=== PATIENT | female | born 1970 ===

== ENCOUNTER 2018-11-04 07:46 | Day surgery (SDC) | payer MEDICARE ==
[2018-10-26 13:34] VITALS: BMI 31.1
[2018-11-04 08:12] VITALS: RESP 18
[2018-11-04] MEDS ORDERED: Lactated Ringer's 1,000 ML IV ONE (08:30)
--- NOTE | 2018-11-04 10:55 | CP.SDSHP ---
Same Day Surgery H & P - History Proposed Procedure: Excision of soft tissue mass Pre-Op Diagnosis: soft tissue mass - Previous Medical/Surgical History Pain: 4.Moderate Pain Previous Surgical History: Darian-en-y gastric bypass, x 3 - Allergies Allergies: Allergies Penicillins Allergy (Verified 11/04/18 07:58) RASH RASH - Current Medications Current Medications: Denies - Physical Exam General Appearance: well nourished, NAD Vital Signs: Vital Signs 11/04/18 11/04/18 08:11 08:16 Temperature 97.9 F Pulse Rate 69 69 Respiratory 18 Rate Blood Pressure 121/78 O2 Sat by Pulse 98 Oximetry Mental Status: Alert & Oriented x3 Neuro: WNL Heart: WNL Lungs: WNL GI: WNL - {Optional Preform as Required} Integument: Other (sift tissue mass on mid thoracic region) - Impression Impression: 48 F who presents for Excision of soft tissue mass Pt. Evaluated Today:Candidate for Anesthesia & Procedure: Yes - Date & Time Date: 11/04/18 Time: 11:00 Short Stay Discharge - Short Stay Discharge Admitting Diagnosis/Reason for Visit: D17.1 Disposition: HOME/ ROUTINE Medications: traMADol [Ultram] 50 mg PO Q6 PRN #20 tab PRN Reason: Pain, Moderate (4-7) Referrals: Luis Osei MD [Staff Provider] - Additional Instructions (Diet, Activity): follow up with Dr. Osei within 1-2 weeks may shower keep area clean and dry Call Dr. Osei's office for any issues Progress Note/Discharge Note with Instructions: 48 F who presented for excision of soft tissue mass Patient stable for discharge home when SDS criteria met
[2018-11-04] MEDS ORDERED: Propofol 10 mg/ml Inj (20 ML) ONE (10:59)
[2018-11-04] MEDS ORDERED: Midazolam 2 MG/2 ML VIAL ONE ×2 (10:59→11:16)
[2018-11-04] MEDS ORDERED: Lidocaine 1% Inj (20ml) INFIL ONE ×2 (11:31)
--- NOTE | 2018-11-04 12:07 | PCM.SURG1 ---
Surgeon's Initial Post Op Note - Surgeon's Notes Surgeon: Dr. Osei Site Reliability Engineer: Rima PGY2 Type of Anesthesia: IV Sedation, Local Anesthesia Administered By: Dr. Blevins Pre-Operative Diagnosis: Soft tissue mass of upper back Operative Findings: Soft tissue mass of upper back Post-Operative Diagnosis: Soft tissue mass of upper back Operation Performed: Excision of upper back soft tissue mass Specimen/Specimens Removed: Soft tissue mass of upper back Estimated Blood Loss: EBL {In ML}: 5 Blood Products Given: N/A Drains Used: No Drains Post-Op Condition: Good Date of Surgery/Procedure: 11/04/18 Time of Surgery/Procedure: 12:07
[2018-11-04] MEDS: HYDROmorphone 0.5 mg/0.5 ml ISec IVP PRN ×2 (12:15→13:00)
[2018-11-04] MEDS ORDERED: Lactated Ringer's 1,000 ML IV SCH (12:15)
[2018-11-04 14:51] VITALS: O2SAT 98
[2018-11-04 15:38] VITALS: BP 135/81; PULSE 82; TEMP 98
--- NOTE | 2018-11-05 00:08 | OP ---
PROCEDURE DATE: 11/04/2018 PREOPERATIVE DIAGNOSIS: Mass of the back. POSTOPERATIVE DIAGNOSIS: Mass of the back. PROCEDURE PERFORMED: Excision of the mass of the back. SURGEON: Luis Osei MD CREDIT COLLECTOR: Cooper Abarca DO ANESTHESIOLOGIST: Josephine Blevins MD ANESTHESIA: Local with sedation. IV FLUIDS: Crystalloids. ESTIMATED BLOOD LOSS: 1 mL. INTRAOPERATIVE FINDINGS: Mass of the back. SPECIMEN: Mass of the back. BRIEF HISTORY: Ms. Solomon is a very pleasant 48-year-old female who came to the office complaining of the mass of the back to the mid back that she noticed about a month ago, but lately has been giving her pains and discomfort, so she wished for the back mass to be excised surgically. All the risks and benefits of the procedure were explained to the patient. With the patient having a full understanding of all the risks and benefits involved, informed consent was obtained, and the patient was taken to the operating room for above-stated procedure. DESCRIPTION OF PROCEDURE: The patient was brought into the operating room and placed supine on the operating room table. Bilateral Flowtron boots were placed on the patient's lower extremities. Subsequent to that, the patient was placed in the left lateral decubitus position and after some successful IV sedation, the patient's back was prepped with ChloraPrep stick and draped in a standard surgical fashion. Prior to beginning of the procedure, a time-out was called in the room and everyone in the room were in agreement. The patient received prophylactic clindamycin antibiotic prior to the incision time. The area around palpable mass of the mid back was infiltrated with 10 mL of 1% lidocaine local anesthetic and subsequent to that, using a 15 blade scalpel knife, approximately a 2-cm incision was made right on top of the palpable mass in a longitudinal fashion. Subsequent to that, dissection was carried down with electrocautery until the mass was visualized. The mass was exteriorized into the wound and transected with electrocautery and passed off to the [facility] as a specimen. Subsequent to that, the wound was irrigated and dried. Hemostasis was achieved with electrocautery and two deep dermal sutures were placed with 3-0 Vicryl and subsequent to that, skin was approximated with 4-0 Monocryl suture in a running subcuticular fashion. At the end of the procedure, the patient's back was washed and dried and Dermabond was applied to the site of the incision. The patient was successfully transferred to a stretcher and transferred to the recovery room in a stable condition. At the end of the procedure, all instrument counts, needles, and sponges were correct. Luis Osei MD
== END 2018-11-04 15:44 | disposition home or self-care (01) ==
LOC: H.OPSURG 07:46
PROVIDERS: ATTEND Surgery
DX: D17.1 Benign lipomatous neoplasm of skin and subcutaneous tissue of trunk (principal); Z98.84 Bariatric surgery status; Z88.0 Allergy status to penicillin
CPT/HCPCS: 21931; 88305; J1170; J2001; J2250; J2405; J2704; J3010; J7030; J7120

== ENCOUNTER 2018-11-30 06:12 | Day surgery (SDC) | payer MEDICARE ==
[2018-11-26 18:58] VITALS: BMI 31.8
[2018-11-30] MEDS ORDERED: Lidocaine 1% w Epi 1:100,000 Inj ONE (07:22)
[2018-11-30] MEDS ORDERED: Propofol 10 mg/ml Inj (20 ML) ONE (07:58)
[2018-11-30] MEDS ORDERED: Midazolam 2 MG/2 ML VIAL ONE (07:58)
[2018-11-30] MEDS ORDERED: Lidocaine 1% Inj (20ml) ONE (08:38)
[2018-11-30] MEDS ORDERED: Dexamethasone 4 mg/1 ml ONE (08:51)
--- NOTE | 2018-11-30 09:31 | PCM.SURG1 ---
Surgeon's Initial Post Op Note - Surgeon's Notes Surgeon: Dr. Osei Yard Cleaner: Remedios Kelly, PGY 1 Type of Anesthesia: General LMA Pre-Operative Diagnosis: left medial thigh mass Operative Findings: see operative note Post-Operative Diagnosis: left medial thigh mass Operation Performed: left medial thigh mass excision Specimen/Specimens Removed: left medial thigh mass Estimated Blood Loss: EBL {In ML}: 1 Blood Products Given: N/A Drains Used: No Drains Post-Op Condition: Good Date of Surgery/Procedure: 11/30/18 Time of Surgery/Procedure: 08:30
[2018-11-30] MEDS ORDERED: HYDROmorphone 0.5 mg/0.5 ml ISec IVP PRN (09:32)
--- NOTE | 2018-11-30 09:36 | CP.SDSHP ---
Same Day Surgery H & P - Allergies Allergies: Allergies Penicillins Allergy (Verified 11/30/18 09:12) RASH RASH - Physical Exam Vital Signs: Vital Signs 11/30/18 08:00 Temperature 97.7 F Pulse Rate 61 Respiratory 18 Rate Blood Pressure 110/65 O2 Sat by Pulse 99 Oximetry Short Stay Discharge - Short Stay Discharge Admitting Diagnosis/Reason for Visit: D17.24 Disposition: HOME/ ROUTINE Additional Instructions (Diet, Activity): please follow up with Dr. Osei in his office within 7-10 days you have been prescribed medication for pain and nausea. please take these medications as directed. You may resume normal activities and diet. Please refrain from swimming, hot tubs or soaking in baths for the next 2weeks. please call Dr. Osei's office with any concerns or questions. Progress Note/Discharge Note with Instructions: Patient underwent left medial thigh mass excision without complications. recovery was uneventful and the patient was discharged home in stable condition with all questions and concerns answered. Additionally she was given prescriptions for Percocet and Zofran to be taken as directed.
[2018-11-30] MEDS ORDERED: Lactated Ringer's 1,000 ML IV ONE ×2 (10:35)
[2018-11-30 10:41] VITALS: RESP 18
[2018-11-30 13:40] VITALS: BP 114/48; PULSE 84; TEMP 97.9; O2SAT 98
--- NOTE | 2018-11-30 21:11 | OP ---
PROCEDURE DATE: 11/30/2018 PREOPERATIVE DIAGNOSIS: Mass of the left medial thigh. POSTOPERATIVE DIAGNOSIS: Mass of the left medial thigh. PROCEDURE: Excision of the mass from the left medial thigh. SURGEON: Luis Osei MD. MACHINE CLOTH TRIMMER: Remedios Khalil D.O. ANESTHESIOLOGIST: Aaliyah Herring MD ANESTHESIA: General LMA intubation. IV FLUIDS: Crystalloid. ESTIMATED BLOOD LOSS: 1 mL. INTRAOPERATIVE FINDINGS: Fatty appearing mass of the left medial thigh. SPECIMEN: Mass of the left medial thigh. BRIEF HISTORY: The patient is a very pleasant 48-year-old female who is known to me from her recent surgery where I took out a mass from her back. Now presented to the office complaining of another mass to the left medial thigh. All the risks and benefits of the procedure were explained to the patient. With the patient having a full understanding of all the risks and benefits involved, informed consent was obtained and the patient was taken to the operating room for above-stated procedure. DESCRIPTION OF PROCEDURE: The patient was brought into the operating room and placed supine on the operating room table. Bilateral Flowtron boots were applied to the patient's lower extremities. After successful induction of anesthesia and successful LMA intubation by the anesthesia team, the patient's left leg was placed in a frog-like position. Subsequent to that, the area on top of the left thigh mass was prepped with ChloraPrep stick and draped in a standard surgical fashion. Prior to the beginning of the procedure, the patient received prophylactic clindamycin antibiotics. A time-out was called in the room and everyone in the room were in agreement. Using a 15 blade scalpel knife, approximately a 2.5-cm incision was made in the longitudinal fashion right on top of the palpable mass of the left medial thigh and subsequent to that, dissection was carried down with electrocautery until the fatty appearing mass was encountered. The mass was dissected around circumferentially bluntly with the finger dissection and subsequent to that, the mass was exteriorized into the wound and transected right at the stalk with electrocautery and passed off to the [facility] as a specimen. At this point in time, the wound was irrigated and dried. Hemostasis was achieved with electrocautery. Subsequent to that, three interrupted deep dermal sutures were placed with 3-0 Vicryl suture on a SH needle. Subsequent to that, incision was infiltrated with 10 mL of 1% lidocaine with local anesthetic. Subsequent to that, the skin was approximated to a 4-0 Monocryl suture in a running subcuticular fashion. At the end of the procedure, the patient's left thigh was washed and dried, and Dermabond was applied to the site of the incision. The patient was successfully extubated by the anesthesia team and transferred to the stretcher and taken to the recovery room in a stable condition. At the end of the procedure, all instrument counts, needles, and sponges were correct. Luis Osei MD
== END 2018-11-30 12:40 | disposition home or self-care (01) ==
LOC: H.OPSURG 06:12
PROVIDERS: ATTEND Surgery
DX: D17.24 Benign lipomatous neoplasm of skin and subcutaneous tissue of left leg (principal); Z88.0 Allergy status to penicillin
CPT/HCPCS: 11404; 12032; 88307; J1100; J2001; J2250; J2405; J2704; J2765; J3010; J7120